=== PATIENT | female | born 1960 | race Caucasian/White ===

== ENCOUNTER 2020-10-28 07:14 | Emergency (ER) | payer MEDICARE, SELFPAY ==
--- NOTE | ~2020-10-28 | CT_ITS ---
EXAMINATION: CT HEAD, NONCONTRAST CT FACIAL BONES CLINICAL INFORMATION: Fall, trauma, right frontal abrasions. COMPARISON: None TECHNIQUE: Contiguous axial imaging of the head was performed from the skull base to vertex without intravenous administration of contrast. Additional axial CT of the facial bones is also performed without intravenous contrast. Additional 2-D coronal and sagittal reformatted images for each exam are generated on the CT workstation and uploaded to PACS. This CT examination was performed using dose optimization techniques as appropriate, variously including the following: *Automated exposure control *Adjustment of mA and/or kV according to patient size (this includes techniques or standardized protocols for targeted exams where dose is matched to indication/reason for exam; i.e. extremities or head) *Use of iterative reconstruction technique DLP: 520 mGy-cm (head). 290 mGy-cm (facial bones). FINDINGS: CT Head: There is no intracranial hemorrhage, hematoma, or extra-axial fluid collection. The ventricles are normal in size. There is no hydrocephalus, edema, or mass effect. The shaw-white matter differentiation appears symmetric. There is no visible acute territorial infarct or mass lesion. The calvarium appears intact. There is no pneumocephalus. The middle ears and mastoid air cells show no significant mucosal thickening. There are no air-fluid levels. CT Facial Bones: There is no fracture. The orbital rims and floors, nasal bones, zygomatic arches, pterygoid plates are intact. The globes and retrobulbar soft tissues are unremarkable. No orbital emphysema. There are no air-fluid levels in the sinuses. Some mild mucosal thickening is present mid right ethmoid air cell and inferior left maxillary sinus. The craniocervical junction is unremarkable. CT/CT facial bones wo con IMPRESSION: 1. No acute intracranial abnormality. 2. No facial bone fracture.
--- NOTE | ~2020-10-28 | CT_ITS ---
EXAMINATION: CT CERVICAL SPINE WITHOUT CONTRAST CLINICAL INFORMATION: Trauma. Fall. COMPARISON: None TECHNIQUE: Axial images through the cervical spine without contrast. Sagittal and coronal reconstructions on the technologist workstation were performed. This CT examination was performed using dose optimization techniques as appropriate, variously including the following: *Automated exposure control *Adjustment of mA and/or kV according to patient size (this includes techniques or standardized protocols for targeted exams where dose is matched to indication/reason for exam; i.e. extremities or head) *Use of iterative reconstruction technique DLP: 290 mGy-cm FINDINGS: There is mild 2 mm anterior subluxation of C4 with respect to C5. Bone alignment is otherwise normal. No fracture or dislocation is seen. There is degenerative spondylosis at C4-C5 and C5-C6. There is mild disc space narrowing at C4-C5 and C5-C6. Prevertebral soft tissues are normal. Visualized lung apices are clear. CT/CT cervical spine wo con IMPRESSION: No fracture or dislocation. Mild degenerative changes.
[2020-10-28 08:04] VITALS: BP 133/74; PULSE 68; RESP 18; TEMP 37.1; O2SAT 98; BMI 27.2
--- NOTE | 2020-10-28 08:24 | ECG_ITS ---
Test Reason : FALL Blood Pressure : / mmHG Vent. Rate : 060 BPM Atrial Rate : 060 BPM P-R Int : 136 ms QRS Dur : 132 ms QT Int : 474 ms P-R-T Axes : -05 006 118 degrees QTc Int : 474 ms Normal sinus rhythm Left bundle branch block Abnormal ECG When compared with ECG of 27-MAR-2013 03:53, Left bundle branch block is now Present Referred By: Ari Chatman Electronically Signed By:KAE RICKETTS
--- NOTE | 2020-10-28 08:27 | PC.NURSE ---
pt alert and oriented x3, vss. Pt states this morning while getting up out of her bed she fell. she states her bed is really high and she thought she was close to the floor so she stood up, no loc. Pt denies dizziness/headache prior to fall. She did hit the front of her head and currently has a bruise on the right side of her forehead. she c/o right neck pain. Nueros are intact. Pt in no apparent distress. Will continue to monitor.
[2020-10-28 08:44] VITALS: BP 117/67; PULSE 85
[2020-10-28 08:47] VITALS: BP 126/72; PULSE 59
[2020-10-28 08:49] VITALS: BP 127/72; PULSE 63
--- NOTE | 2020-10-28 09:16 | ED_ITS ---
HPI - General Adult General Chief complaint: Fall Stated complaint: fall - head injury Time Seen by Provider: 10/28/20 08:10 Source: patient Mode of arrival: ambulatory Limitations: no limitations History of Present Illness HPI narrative: Patient presents to ED for fall. Patient states she fell around 07:00 this morning. Patient states she got up from the bed and fell onto the ground. Patient denies having any dizziness, headache, chest pain, shortness of breath, abdominal pain before falling to the ground. Patient states history of vertigo but did not have dizzy episode this morning. Patient states she fell because she got up too fast and her foot slipped on something causing her to fall on the ground. Patient states usually when she gets up in the morning she sits down on the bed and gets up real slow, but patient wanted to go to [facility] so she got up fast. Patient denies any recent long travel, recent surgery, or any history of blood clots. Patient states history of high blood pressure and asthma. Patient denies any loss of consciousness, abdominal pain, chest pain, shortness of breath, pain in extremities, vomiting blood, rectal bleeding, or coughing up blood since incident occurred. Patient is not on any blood thinners. Related Data Allergies Allergy/AdvReac Type Severity Reaction Status Date / Time No Known Allergies Allergy Verified 10/28/20 08:26 Review of Systems Review of Systems: Yes all other systems are reviewed and are negative Constitutional: Constitutional: Reports as per HPI and Reports no additional constitutional complaints Eyes: Eyes: Reports as per HPI ENT: Reports system reviewed and no additional complaints, except as documented and Reports as per HPI Cardiovascular: Cardiovascular: Reports as per HPI and Reports no additional cardiovascular complaints Respiratory: Respiratory: Reports as per HPI and Reports no additional respiratory complaints Gastrointestinal: Gastrointestinal: Reports as per HPI and Reports no additional gastrointestinal complaints Genitourinary: Genitourinary: Reports no additional female genitourinary complaints and Reports as per HPI Musculoskeletal: Musculoskeletal: Reports no additional musculoskeletal complaints and Reports as per HPI Neurologic: Reports system reviewed and no additional complaints, except as documented and Reports as per HPI Psychiatric: Psychiatric: Reports no additional psychiatric complaints and Reports as per HPI [facility] Social History Social History Advance Directives: No Advance Directives Information Provided: No Physical Exam Vital Signs: Vital Signs: Last Vital Signs Temp 98.8 F 10/28/20 08:04 Pulse 63 10/28/20 08:49 Resp 18 10/28/20 08:04 BP 127/72 10/28/20 08:49 Pulse Ox 98 10/28/20 08:04 Body Mass Index 27.2 Const: General: cooperative, healthy appearing, comfortable, no acute distress, well developed, alert, awake and Physically active Orientation/consciousness: patient oriented x3 HENMT: Head: Yes normal to inspection, Yes No palpable skull fracture present, Yes normocephalic and Yes abrasion (right frontal) Head images: 1. abrasion with mild tenderness. Negative for ecchymosis, bleeding, or bone exposure. Eyes: General: appearance normal, both eyes and all related structures Neck: Neck: Yes normal visual inspection, Yes full ROM, Yes no lymphadenopathy, Yes no meningeal signs, Yes trachea midline, Yes supple and No tender Chest: Chest palpation & inspection: normal inspection of the chest and normal palpation of entire chest wall Resp: Effort & Inspection: normal respiratory effort and able to speak in complete sentences Auscultation: clear to auscultation bilaterally Cardio: Jugular venous distension: no JVD Heart sounds: S1 normal heart sound present and S2 normal heart sound present GI: Inspection: Yes normal to inspection and No abdominal wall ecchymosis Palpation (GI): Soft to palpation, not firm, nontender, no guarding and not rigid : General: No CVA tenderness and Yes no CVA tenderness Back/Spine/Pelvis: Back: no CVA tenderness, No CVA tenderness and No back tenderness Skin: General skin exam: no rashes or lesions noted and elasticity normal Neuro: General: patient oriented x3, gait normal, no meningeal signs and CN's II-XI intact bilaterally Cranial nerves: Yes CN's II-XII intact bilaterally Extrem: General: Yes normal to inspection and Yes full ROM Psych: Appearance: grossly normal, well kempt and not disheveled Course Course Course Narrative: history & physical some slight mechanical fall but with do ankle evaluation including labs, EKG, and troponin. Patient will have images done. Reevaluation(s) Reevaluation #1: Patient's 1st troponin came back negative. EKG negative for any new changes. Prior EKG shows left bundle branch block. EKG negative STEMI. Orthostatics negative. Imaging is negative for any fracture or brain bleeds. Neuro exam intact. Negative for any neuro deficits. patient normal and at baseline. First troponin negative. Patient not in any distress. Time: 21:21 Reevaluation #2: Second troponin came back negative. Patient is safe for discharge. Patient states her foot slipped on the floor and caused her to fall. Patient had mechanical fall. Time: 13:52 Medical Decision Making MDM Narrative Medical decision making narrative: Mechanical fall Lab Data Result diagrams: 10/28/20 09:21 10/28/20 09:21 Labs: Lab Results 10/28/20 10/28/20 10/28/20 Range/Units 09:21 09:21 09:21 WBC 5.8 (4.8-10.8) X10*3/uL RBC 5.73 H (4.20-5.50) X10*6/uL Hgb 12.7 (12.0-16.0) g/dl Hct 40.8 (37-47) % MCV 71.2 L (80-98) fL MCH 22.2 L (27.0-33.0) pg MCHC 31.1 (31.0-35.0) g/dl RDW 16.6 H (11.0-16.0) % Plt Count 198 (160-400) X10*3/uL MPV 10.7 (9.4-12.3) fL Immature Gran % (Auto) 0.3 (0.0-0.4) % Neut % (Auto) 60.4 (45-73) % Lymph % (Auto) 28.6 (20-40) % Starr % (Auto) 8.3 (2-11) % Eos % (Auto) 2.1 (0-4) % Baso % (Auto) 0.3 (0-2) % Lymph # (Auto) 1.7 (1.2-4.9) X10*3/uL Starr # (Auto) 0.5 (0.1-1.2) X10*3/uL Eos # (Auto) 0.1 (0.0-0.4) X10*3/uL Baso # (Auto) 0.0 (0.0-0.2) X10*3/uL Abs Immat Gran (auto) 0.02 (0.00-0.03) X10*3/uL Absolute Neuts (auto) 3.5 (2.0-8.3) X10*3/uL Absolute Nucleated RBC 0.000 (0.0-0.012) X10*3/uL Nucleated RBC % (auto) 0.0 (0.0-0.2) /100WBC PT 10.8 (9.9-13.0) SEC INR 1.0 (0.9-1.1) APTT 28.4 (24.1-38.0) SEC Sodium 142 (135-145) mmol/L Potassium 4.2 (3.3-5.1) mmol/L Chloride 107 (96-108) mmol/L Carbon Dioxide 30 H (22-29) mmol/L Anion Gap 9 L (12-20) BUN 16 (9-16) mg/dL Creatinine 0.78 (0.5-1.4) mg/dL Estim Creat Clear Calc 69.0 Estimated GFR > 60 Random Glucose 102 (60-115) mg/dL Calcium 9.2 (8.4-10.2) mg/dL Total Bilirubin 0.4 (0.0-1.0) mg/dL AST 20 (5-31) U/L ALT 24 (0-31) U/L Alkaline Phosphatase 83 (39-117) U/L Troponin I High Sens (<3.5-17.0) ng/L Total Protein 7.3 (6.5-8.0) g/dL Albumin 4.4 (3.5-5.0) g/dL 10/28/20 10/28/20 Range/Units 09:21 12:10 WBC (4.8-10.8) X10*3/uL RBC (4.20-5.50) X10*6/uL Hgb (12.0-16.0) g/dl Hct (37-47) % MCV (80-98) fL MCH (27.0-33.0) pg MCHC (31.0-35.0) g/dl RDW (11.0-16.0) % Plt Count (160-400) X10*3/uL MPV (9.4-12.3) fL Immature Gran % (Auto) (0.0-0.4) % Neut % (Auto) (45-73) % Lymph % (Auto) (20-40) % Starr % (Auto) (2-11) % Eos % (Auto) (0-4) % Baso % (Auto) (0-2) % Lymph # (Auto) (1.2-4.9) X10*3/uL Starr # (Auto) (0.1-1.2) X10*3/uL Eos # (Auto) (0.0-0.4) X10*3/uL Baso # (Auto) (0.0-0.2) X10*3/uL Abs Immat Gran (auto) (0.00-0.03) X10*3/uL Absolute Neuts (auto) (2.0-8.3) X10*3/uL Absolute Nucleated RBC (0.0-0.012) X10*3/uL Nucleated RBC % (auto) (0.0-0.2) /100WBC PT (9.9-13.0) SEC INR (0.9-1.1) APTT (24.1-38.0) SEC Sodium (135-145) mmol/L Potassium (3.3-5.1) mmol/L Chloride (96-108) mmol/L Carbon Dioxide (22-29) mmol/L Anion Gap (12-20) BUN (9-16) mg/dL Creatinine (0.5-1.4) mg/dL Estim Creat Clear Calc Estimated GFR Random Glucose (60-115) mg/dL Calcium (8.4-10.2) mg/dL Total Bilirubin (0.0-1.0) mg/dL AST (5-31) U/L ALT (0-31) U/L Alkaline Phosphatase (39-117) U/L Troponin I High Sens 4.4 < 3.5 (<3.5-17.0) ng/L Total Protein (6.5-8.0) g/dL Albumin (3.5-5.0) g/dL ECG Data Interpretation: Normal sinus rhythm. Left bundle branch block. Ventricular rat e 60. FL interval 136. QRS 132. QTC 474. Negative STEMI Discharge Plan Discharge Clinical Impression: Fall Patient Disposition: Home, Self-Care Instructions: Head Injury (ED), Fall Prevention (ED) Additional Instructions: Dawkins an?lisis de marito y las im?genes volvieron a la normalidad. Regrese al servicio de urgencias de inmediato si tiene dolor de nestor, mareos, n?useas, v?mitos, fiebre, escalofr?os, dolor de pecho, dificultad para respirar, dolor abdominal, sangrado rectal, v?mitos con marito o cualquier otro s?ntoma que le preocupe. Sari un seguimiento con dawkins proveedor de atenci?n primaria. Interventions: ED Discharge Assessment Last Done: 10/28/20 14:35 Discharge Date/Time: 10/28/20 14:35 Print Language: Amharic
[2020-10-28 09:26] LABS: MANUAL DIFF FLAG NO
[2020-10-28 09:28] LABS: Basophils Percent Auto 0.3 % (0-2); Eosinophils Absolute Auto 0.1 X10*3/uL (0.0-0.4); Eosinophils Percent Auto 2.1 % (0-4); Hematocrit 40.8 % (37-47); Hemoglobin 12.7 g/dl (12.0-16.0); Imm Gran Abs Auto 0.02 X10*3/uL (0.00-0.03); Imm Gran Pct Auto 0.3 % (0.0-0.4); Lymphocytes Absolute Auto 1.7 X10*3/uL (1.2-4.9); Lymphocytes Percent Auto 28.6 % (20-40); Mean Corpuscular HGB Conc 31.1 g/dl (31.0-35.0); Mean Corpuscular Hemoglobin 22.2 pg (27.0-33.0); Mean Corpuscular Volume 71.2 fL (80-98); Mean Platelet Volume 10.7 fL (9.4-12.3); Monocytes Absolute Auto 0.5 X10*3/uL (0.1-1.2); Monocytes Percent Auto 8.3 % (2-11); Neutrophils Absolute Auto 3.5 X10*3/uL (2.0-8.3); Neutrophils Percent Auto 60.4 % (45-73); Platelet Count 198 X10*3/uL (160-400); Red Blood Count 5.73 X10*6/uL (4.20-5.50); Red Cell Distribution Width 16.6 % (11.0-16.0); White Blood Count 5.8 X10*3/uL (4.8-10.8)
[2020-10-28 09:35] LABS: Prothrombin Time 10.8 SEC (9.9-13.0)
[2020-10-28 09:38] LABS: Partial Thromboplastin Time 28.4 SEC (24.1-38.0)
[2020-10-28 09:46] LABS: Alanine Aminotransferase 24 U/L (0-31); Albumin Level 4.4 g/dL (3.5-5.0); Alkaline Phosphatase 83 U/L (39-117); Anion Gap 9 (12-20); Aspartate Amino Transferase 20 U/L (5-31); Bilirubin Total 0.4 mg/dL (0.0-1.0); Blood Urea Nitrogen 16 mg/dL (9-16); Calcium 9.2 mg/dL (8.4-10.2); Carbon Dioxide 30 mmol/L (22-29); Chloride 107 mmol/L (96-108); Estimated Glomerular Filt Rate > 60; Glucose Random 102 mg/dL (60-115); Potassium 4.2 mmol/L (3.3-5.1); Sodium 142 mmol/L (135-145); Total Protein 7.3 g/dL (6.5-8.0)
[2020-10-28 09:48] LABS: Troponin-I High Sensitivity 4.4 ng/L (<3.5-17.0)
[2020-10-28 12:36] LABS: Troponin-I High Sensitivity < 3.5 ng/L (<3.5-17.0)
== END 2020-10-28 14:35 | disposition home or self-care (01) ==
PROVIDERS: Physician Assistant; Emergency Provider Emergency Medicine
DX: S00.81XA Abrasion of other part of head, initial encounter (principal); W18.30XA Fall on same level, unspecified, initial encounter; Y93.89 Activity, other specified; Y92.032 Bedroom in apartment as the place of occurrence of the external cause; Y99.9 Unspecified external cause status
CPT/HCPCS: 36415; 70450; 70486; 72125; 80053; 84484; 85025; 85610; 85730; 93005; 99283; 99284